=== PATIENT | female | born 1975 | race African-American/Black ===

== ENCOUNTER 2018-07-23 10:10 | Emergency (ER) | payer BC, OTHER ==
[~2018-07-23] VITALS: Ht 160 cm; Wt 86.2 kg
[2018-07-23 10:40] LABS: Basophils # (auto) 0.1 uL; Eosinophils # (auto) 0.3 uL; Hematocrit 35.6 % (36.0-46.0); Hemoglobin 11.8 g/dL (12.2-16.2); Lymphocytes # (auto) 3.1 uL; Lymphocytes % (auto) 47.8 % (10.0-50.0); Mean Corpuscular Hgb Conc. 33.1 g/dL (32.0-36.0); Mean Corpuscular Volume 93.8 fL (80.0-100.0); Monocytes # (auto) 0.4 uL; Monocytes % (auto) 6.3 % (0.0-12.0); Neutrophils # (auto) 2.6 uL; Neutrophils % (auto) 39.9 % (37.0-80.0); Platelet Count (auto) 377 10^3/uL (140-450); Red Blood Cells 3.79 10^6/uL (4.0-5.20); Red Cell Distribution Width 13.5 % (11.8-14.3); White Blood Cell 6.6 10^3/uL (4.4-10.8)
[2018-07-23 10:57] LABS: Alanine Aminotransferase 21 U/L (13-56); Albumin 3.4 g/dL (3.4-5.0); Anion Gap 7 (5-15); Aspartate Aminotransferase 19 U/L (15-37); BUN/Creatinine Ratio 10.8; Blood Urea Nitrogen 9 mg/dL (7-18); Calcium 8.6 mg/dL (8.5-10.1); Carbon Dioxide 24 mmol/L (21-32); Chloride 108 mmol/L (98-107); GFR African American 96 mL/min; GFR Non-African American 79 mL/min; Glucose 96 mg/dL (74-106); Potassium 3.6 mmol/L (3.5-5.1); Sodium 139 mmol/L (136-145)
[2018-07-23 11:03] LABS: Alkaline Phosphatase 104 U/L (45-117); Bilirubin, Total 0.2 mg/dL (0.2-1.0); Total Protein 7.1 g/dL (6.4-8.2)
[2018-07-23 12:37] VITALS: BP 133/79
== END 2018-07-23 14:42 | disposition left against medical advice (07) ==
LOC: ER 10:10
DX: R07.89 Other chest pain (principal); Z53.21 Procedure and treatment not carried out due to patient leaving prior to being seen by health care provider
CPT/HCPCS: 36415; 71046; 80053; 84484; 85025; 93005